=== PATIENT | female | born 1975 | race Caucasian/White ===

== ENCOUNTER → 2022-01-04 17:35 | Outpatient (CLI) | payer OTHER, MEDICAID, SELFPAY ==
--- NOTE | 2022-01-04 17:37 | DI.MG.S_ITS ---
BILATERAL DIGITAL SCREENING MAMMOGRAM 3D/2D WITH CAD: 01/04/2022 CLINICAL: Routine screening. Family history of breast cancer. Comparison is made to exam dated: 04/05/2015 mammogram - [facility]. The tissue of both breasts is heterogeneously dense. This may lower the sensitivity of mammography. Current study was also evaluated with a Computer Aided Detection (CAD) system. No significant masses, calcifications, or other findings are seen in either breast. There has been no significant interval change. IMPRESSION: NEGATIVE There is no mammographic evidence of malignancy. A 1 year screening mammogram is recommended. This exam was interpreted at Station ID: [id number]. NOTE: For mammograms, a report in lay terms will be sent to the patient. Approximately 15% of breast malignancies will not be visualized mammographically. In the management of a palpable breast mass, a negative mammogram must not discourage biopsy of a clinically suspicious lesion. Electronically Signed By: Elton Arango M.D., jr/tenzin:01/05/2022 08:28:44 letter sent: Normal Exam ACR BI-RADS Category 1: Negative 3341F
== END ==
PROVIDERS: Family Provider Family Medicine; PCP Internal Medicine; Referring Provider Internal Medicine; Visit Provider Internal Medicine
DX: Z12.31 Encounter for screening mammogram for malignant neoplasm of breast (principal); Z80.3 Family history of malignant neoplasm of breast
CPT/HCPCS: 77063; 77067

== ENCOUNTER → 2022-01-10 08:01 | Outpatient (CLI) | payer OTHER, MEDICAID, SELFPAY ==
[2022-01-10 09:48] LABS: Alanine Aminotransferase 15 IU/L (<35); Albumin 3.9 g/dL (3.5-5.0); Albumin Globulin Ratio 1.3 (1.0-2.8); Alkaline Phosphatase 42 U/L (38-126); Aspartate Aminotransferase 22 IU/L (14-36); BUN Creatinine Ratio 15.6 (6-22); Bilirubin Total 1.3 mg/dL (0.2-1.3); Blood Urea Nitrogen 10 mg/dL (7-17); Calcium 8.5 mg/dL (8.4-10.2); Carbon Dioxide 27 mmol/L (22-32); Chloride 108 mmol/L (98-107); Cholesterol 150 mg/dL (140-199); Estimated Glomerular Filt Rate > 60.0 mL/min (>60); Globulin 2.9 g/dL (1.7-4.1); Glucose 94 mg/dL (70-100); HDL Cholesterol 62 mg/dL (40-60); HEMOLYSIS < 15 (0-50); LDL Cholesterol Calculated 68 mg/dL (<100); Potassium 4.4 mmol/L (3.4-5.1); Sodium 138 mmol/L (137-145); Total Protein 6.8 g/dL (6.3-8.2); Triglycerides 98 mg/dL (35-150)
[2022-01-10 10:19] LABS: TSH w/ Reflex to FT4 2.21 uIU/mL (0.47-4.68)
[2022-01-11 06:36] LABS: Rubeola Measles IgG > 300.0 AU/mL (Immune >16.4); Varicella IgG Antibody 1506 index (Immune >165)
[2022-01-11 09:08] LABS: Mumps Virus IgG Antibody <9.0 AU/mL (Immune >10.9)
== END ==
PROVIDERS: Family Provider Family Medicine; PCP Internal Medicine; Referring Provider Internal Medicine; Visit Provider Internal Medicine
DX: Z13.1 Encounter for screening for diabetes mellitus (principal); Z13.220 Encounter for screening for lipoid disorders; Z13.6 Encounter for screening for cardiovascular disorders
CPT/HCPCS: 36415; 80053; 80061; 84443; 86735; 86762; 86765; 86787

== ENCOUNTER → 2023-01-25 15:26 | Outpatient (CLI) | payer OTHER, MEDICAID, SELFPAY ==
--- NOTE | 2023-01-25 | DI.MG.S_ITS ---
BILATERAL DIGITAL SCREENING MAMMOGRAM 3D/2D WITH CAD: 01/25/2023 CLINICAL: Routine screening. Family history of breast cancer. Comparison is made to exams dated: 01/04/2022 mammogram and 04/05/2015 mammogram - [facility]. Both breasts are heterogeneously dense, which may obscure small masses (category c / 51-75% glandular tissue). Current study was also evaluated with a Computer Aided Detection (CAD) system. No significant masses, calcifications, or other findings are seen in either breast. There has been no significant interval change. IMPRESSION: NEGATIVE There is no mammographic evidence of malignancy. A 1 year screening mammogram is recommended. Based on the Tyrer Cuzick model (a risk assessment model) the patient's lifetime risk is 12.1% and her 10 year risk is 2.6%. According to the ACR, ACS, and NCCN guidelines, an annual breast MRI exam along with mammogram is recommended if the patient's lifetime risk is 20% or greater. This exam was interpreted at Station ID: [id number]. NOTE: For mammograms, a report in lay terms will be sent to the patient. Approximately 15% of breast malignancies will not be visualized mammographically. In the management of a palpable breast mass, a negative mammogram must not discourage biopsy of a clinically suspicious lesion. Electronically Signed By: Liliam valenzuela/tenzin:01/26/2023 08:03:26 letter sent: Normal Exam ACR BI-RADS Category 1: Negative 3341F
== END ==
PROVIDERS: Family Provider Family Medicine; PCP Internal Medicine; Referring Provider Internal Medicine; Visit Provider Internal Medicine
DX: Z12.31 Encounter for screening mammogram for malignant neoplasm of breast (principal); Z80.3 Family history of malignant neoplasm of breast
CPT/HCPCS: 77063; 77067

== ENCOUNTER 2023-05-22 13:03 | Day surgery (SDC) | payer BC, SELFPAY ==
[2023-05-22 13:30] VITALS: BP 125/85; PULSE 81; RESP 16; TEMP 36.3; O2SAT 99; BMI 24.0
[2023-05-22] MEDS: LACTATED RINGERS 1,000 ML 200 ML IV (13:46)
--- NOTE | 2023-05-22 14:20 | P.HP_ITS ---
History of Present Illness History of Present Illness Date Patient Seen: 05/22/23 Time Patient Seen: 14:20 Chief complaint: SDC Narrative: The patient presents for colorectal screening. They have never had any previous examination for such. No personal or family history of colon cancer. On further history denies any recent gastrointestinal symptoms. No nausea, vomiting, abdominal pain, loss of appetite, unexplained weight loss, change in bowel habits, or blood per rectum. [facility] Medical History (Updated 02/03/22 @ 15:48 by Rosendo Ramos MD) Irregular menses Non-alcoholic fatty liver disease SVT (supraventricular tachycardia) Urinary incontinence Surgical History Status post delivery (02/16/02) Status post delivery (03/21/05) Family History Father Age: 79 Prostate cancer Grandmother Hypertension Mother Age: 82 Hypertension Heart problem Social History household members: spouse Smoking Status: Never smoker alcohol intake: current Meds Home Medications and Allergies Home Medications Medication Instructions Recorded Confirmed Type lorazepam 0.5 mg tablet 0.5 mg PO TID PRN anxiety #10 tabs 02/19/23 05/22/23 Rx sodium,potassium,mag sulfates 17.5 See Rx Instructions PO .COMPLEX 04/19/23 05/22/23 Rx gram-3.13 gram-1.6 gram oral soln #354 mL (Suprep Bowel Prep Kit) Allergies Allergy/AdvReac Type Severity Reaction Status Date / Time No Known Drug Allergies Allergy Verified 02/19/23 15:31 Exam Vital Signs (past 8 hours): - 05/22/23 13:30 Temperature 97.3 F L Pulse Rate 81 Respiratory Rate 16 Blood Pressure 125/85 Pulse Oximetry 99 Oxygen Delivery Method Room Air Oxygen Delivery Method Room Air Narrative Exam Narrative: Gen-Adult woman alert and oriented Abdomen-soft non tender Assessment & Plan Assessment & Plan narrative: The patient requires colorectal screening and colonoscopy is recommended. Technical details were discussed. Risks, benefits, alternatives explained. Risks including but not limited to myocardial infarction, aspiration, bleeding, pain, missed lesion, incomplete examination, need for further radiographic studies, colonic perforation, and need for major abdominal surgery were discussed. All questions were answered to their satisfaction, and they are in agreement with this plan.
--- NOTE | 2023-05-22 14:53 | PM.OP.COLON ---
Operative Date/Time/Diagnoses Date of procedure: 05/22/23 Time of procedure: 14:53 Pre-op diagnosis: Colorectal screening Post-op diagnosis: same Procedure & Clinicians Study performed: Screening colonoscopy Same procedure as scheduled: Yes Indications: screening Surgeon: Paresh Herndon Procedure Notes Procedure in detail: The history and physical was performed/updated and the patient is ASA class is 2. The procedure was discussed in detail with the patient. Potential risks complications including infection, bleeding, missed diagnosis, perforation, need for surgery, and were explained. Their questions were answered and informed consent was obtained. Patient was brought to the procedure room and placed standard monitoring equipment. The patient's vital signs were monitored continuously throughout the entire procedure. Prior to starting time-out was performed. The patient was placed in the left lateral recumbent position. Procedural sedation was administered by anesthesia. Examination began with a thorough inspection of the perianal area there was no evidence of fissures, fistulae, external hemorrhoids or cutaneous malignancy. The colonoscopy scope was then placed into the anal canal and was advanced to the cecum, which was identified by the ileocecal valve, the appendiceal orifice and the confluence of the taenia. The scope was then slowly withdrawn examining colon thoroughly in all directions, irrigating it of any residual stool. Normal healthy colon. No masses, inflammation or polyps The patient tolerated the procedure well. They will be discharged once criteria are met. The prep was of good/excellent quality. The withdrawl time was 7 minutes. Specimen(s): none sent Impression: Normal colonoscopy Post-procedure Recommendations: Colonoscopy in 10 years Disposition: same day surgery
[2023-05-22 14:57] VITALS: BP 111/70; PULSE 82; RESP 21; TEMP 37.1; O2SAT 97
[2023-05-22 14:59] VITALS: BP 106/69; PULSE 74; RESP 19; O2SAT 97
[2023-05-22 15:05] VITALS: BP 113/80; PULSE 68; RESP 20; O2SAT 98
[2023-05-22 15:10] VITALS: BP 135/80; PULSE 74; RESP 12; O2SAT 97
== END 2023-05-22 15:24 | disposition home or self-care (01) ==
PROVIDERS: Family Provider Family Medicine; PCP Internal Medicine; Referring Provider Surgery; Visit Provider Surgery
PROC: 0DJD8ZZ Inspection of Lower Intestinal Tract, Via Natural or Artificial Opening Endoscopic (ICD-10-PCS; CPT 45378; principal; 2023-05-22 14:15)
DX: Z12.11 Encounter for screening for malignant neoplasm of colon (principal)
CPT/HCPCS: 45378

== ENCOUNTER → 2024-02-01 08:17 | Outpatient (CLI) | payer BC, SELFPAY ==
--- NOTE | 2024-02-01 08:19 | DI.MG.S_ITS ---
BILATERAL DIGITAL SCREENING MAMMOGRAM 3D/2D WITH CAD: 02/01/2024 CLINICAL: Routine screening. Family history of breast cancer. Comparison is made to exams dated: 01/25/2023 mammogram and 01/04/2022 mammogram - [facility]. Both breasts are heterogeneously dense, which may obscure small masses (category c / 51-75% glandular tissue). Current study was also evaluated with a Computer Aided Detection (CAD) system. There is an asymmetry in the left breast anterior depth medial region seen on the craniocaudal view only. This is more prominent. No other significant masses, calcifications, or other findings are seen in either breast. IMPRESSION: INCOMPLETE: NEEDS ADDITIONAL IMAGING EVALUATION The asymmetry in the left breast is indeterminate. Additional views with possible ultrasound are recommended. Based on the Tyrer Cuzick model (a risk assessment model) the patient's lifetime risk is 12.2% and her 10 year risk is 2.7%. According to the ACR, ACS, and NCCN guidelines, an annual breast MRI exam along with mammogram is recommended if the patient's lifetime risk is 20% or greater. This exam was interpreted at Station ID: [id number]. NOTE: For mammograms, a report in lay terms will be sent to the patient. Approximately 15% of breast malignancies will not be visualized mammographically. In the management of a palpable breast mass, a negative mammogram must not discourage biopsy of a clinically suspicious lesion. Electronically Signed By: Ronny farmer/tenzin:02/01/2024 09:09:28 letter sent: Additional Imaging Needed ACR BI-RADS Category 0: Incomplete 3340F
== END ==
PROVIDERS: Family Provider Family Medicine; PCP Internal Medicine; Referring Provider Internal Medicine; Visit Provider Internal Medicine
DX: Z12.31 Encounter for screening mammogram for malignant neoplasm of breast (principal); Z80.3 Family history of malignant neoplasm of breast; N64.89 Other specified disorders of breast
CPT/HCPCS: 77063; 77067

== ENCOUNTER → 2024-02-27 13:27 | Outpatient (CLI) | payer BC, SELFPAY ==
--- NOTE | 2024-02-27 13:29 | DI.MG.S_ITS ---
UNILATERAL LEFT DIGITAL DIAGNOSTIC MAMMOGRAM 3D/2D WITH ADDITIONAL VIEWS: 02/27/2024 CLINICAL: Additional evaluation requested from prior study. Comparison is made to exams dated: 02/01/2024 mammogram, 01/25/2023 mammogram, and 01/04/2022 mammogram - [facility]. The left breast is heterogeneously dense, which may obscure small masses (category c / 51-75% glandular tissue). The asymmetry in the left breast anterior depth medial region seen on the craniocaudal view only is not seen in additional views. No other significant masses or calcifications are seen in the breast. IMPRESSION: BENIGN The asymmetry in the left breast seen on the screening mammogram likely respresents superimposed fibroglandular tissue and is benign. There is no mammographic evidence of malignancy. Return to annual mammogram screening schedule is recommended. Based on the Tyrer Cuzick model (a risk assessment model) the patient's lifetime risk is 12.2% and her 10 year risk is 2.7%. According to the ACR, ACS, and NCCN guidelines, an annual breast MRI exam along with mammogram is recommended if the patient's lifetime risk is 20% or greater. This exam was interpreted at Station ID: [id number]. NOTE: For mammograms, a report in lay terms will be sent to the patient. Approximately 15% of breast malignancies will not be visualized mammographically. In the management of a palpable breast mass, a negative mammogram must not discourage biopsy of a clinically suspicious lesion. Electronically Signed By: Liliam valenzuela/:02/27/2024 13:59:00 Entry: - 02/28/2024 15:43:59 letter sent: Normal Exam ACR BI-RADS Category 2: Benign Finding(s) 3342F
== END ==
PROVIDERS: PCP Internal Medicine; Referring Provider Internal Medicine; Visit Provider Internal Medicine
DX: R92.8 Other abnormal and inconclusive findings on diagnostic imaging of breast (principal); R92.332 Mammographic heterogeneous density, left breast
CPT/HCPCS: 77065; G0279

== ENCOUNTER → 2024-05-02 15:49 | Outpatient (CLI) | payer BC, SELFPAY ==
--- NOTE | 2024-05-02 15:50 | DI.RAD.S_ITS ---
PROCEDURE: XR HIP W PEL IF DONE RT 2V INDICATIONS: Right hip pain TECHNIQUE: AP pelvis with lateral view(s) of the right hip(s). COMPARISON: None. FINDINGS: Bones: No fractures or dislocations. Pelvic ring appears intact. No suspicious bony lesions. There is, however what appears to be moderately severe to severe degenerative changes at the right aspect of the low lumbosacral spine partially included on this examination including at L3-L4, L4-L5, with a possible pars interarticularis defect on the right at the L5 vertebral segment. Soft tissues: The visualized bowel gas pattern is normal. No suspicious soft tissue calcifications. IMPRESSION: No trauma or other acute abnormality at the right hip but referred pain from the prominent degenerative changes and possible pars interarticularis defect on the right at the low lumbosacral spine discussed above should be considered. Dictated by: Porfirio Velasco M.D. on 05/02/2024 at 16:11 Approved by: Porfirio Velasco M.D. on 05/02/2024 at 16:12
== END ==
PROVIDERS: PCP Internal Medicine; Referring Provider Registered Nurse; Visit Provider Registered Nurse
DX: M47.817 Spondylosis without myelopathy or radiculopathy, lumbosacral region (principal); M47.816 Spondylosis without myelopathy or radiculopathy, lumbar region; M25.551 Pain in right hip
CPT/HCPCS: 73502

== ENCOUNTER → 2024-05-06 11:32 | Outpatient (CLI) | payer OTHER, SELFPAY ==
--- NOTE | 2024-05-06 11:34 | DI.RAD.S_ITS ---
PROCEDURE: XR LUMBAR SPINE 2-3V INDICATIONS: right leg pain TECHNIQUE: 3 views of the lumbar spine were acquired. COMPARISON: None. FINDINGS: Bones: Mild overall lumbar spondylotic changes with disc space height loss, facet arthropathy, and early osteophyte formation. No acute vertebral body height loss or traumatic subluxation. There is trace leftward spinal curvature at L3-L4. Soft tissues: Indeterminate hyperdensity is seen projecting over the left lower quadrant. IMPRESSION: Mild spondylotic changes. Mild leftward spinal curvature. If there is high concern for further derangement, consider MRI evaluation. Indeterminate hyperdensity is seen projecting over the left lower quadrant. Dictated by: Ronny Frias M.D. on 05/06/2024 at 15:45 Approved by: Ronny Frias M.D. on 05/06/2024 at 15:46
== END ==
PROVIDERS: PCP Internal Medicine; Referring Provider Internal Medicine; Visit Provider Internal Medicine
DX: M47.816 Spondylosis without myelopathy or radiculopathy, lumbar region (principal); M79.604 Pain in right leg
CPT/HCPCS: 72100

== ENCOUNTER → 2024-05-08 09:30 | Outpatient (CLI) | payer OTHER, SELFPAY ==
--- NOTE | 2024-05-08 09:32 | DI.RAD.S_ITS ---
PROCEDURE: XR ABDOMEN MIN 2V INDICATIONS: llq hyperdensity TECHNIQUE: 2 views of the abdomen were acquired. COMPARISON: None. FINDINGS: Surgical changes and devices: None. Bowel: No pneumoperitoneum. The bowel gas pattern is normal. Soft tissues: No masses; visualized solid organ contours appear normal in size. No suspicious abdominal calcifications. Bones: Mild levoscoliosis in the lumbar spine.. IMPRESSION: Nonobstructive bowel gas pattern. Dictated by: Paulino Good M.D. on 05/08/2024 at 12:04 Approved by: Paulino Good M.D. on 05/08/2024 at 12:06
== END ==
PROVIDERS: PCP Internal Medicine; Referring Provider Internal Medicine; Visit Provider Internal Medicine
DX: R19.04 Left lower quadrant abdominal swelling, mass and lump (principal)
CPT/HCPCS: 74019

== ENCOUNTER 2024-08-08 08:02 | Day surgery (SDC) | payer OTHER, SELFPAY ==
[2024-08-05 08:34] VITALS: BMI 24.3
--- NOTE | 2024-08-08 | PATH_ITS ---
[facility] Accession Number: [id number] No. of containers..01 Tissue . 01 Material submitted: . endometrium - ENDOMETRIAL CURETTINGS . 01 Diagnosis: ENDOMETRIAL CURETTINGS: Small fragments of endometrial tissue and scant, detached strips of endometrial glandular epithelium with scattered foreign body material; negative for significant atypia. Detached, superficial fragments of squamous epithelium with reactive features. Negative for endometrioid intraepithelial neoplasia or malignancy. Please see comment. MRV 08/12/2024 1442 Local . 01 Comment: Due to the scant nature of this biopsy, it may not be entirely teleservices representative of this patient's endometrium; additional sampling could be considered, if clinically appropriate. . 01 Electronically signed: . Racheal Vasques MD, Pathologist NPI- [id number] . 01 Gross description: . Received in formalin labeled with two patient identifiers and designated EMC, and consists of a 0.2 x 0.1 x 0.1 cm scant amount of collier-brown tissue which is filtered and entirely submitted in cassette A1. ([id number]) /BRISSA 08/10/2024 1807 Local . 01 Pathologist provided ICD-10: N92.1 . 01 CPT . 024529 Specimen Comment: A courtesy copy of this report has been sent to [phone] Performed at: [address] [facility] [address], [place], [place] [id number] MD Julian Soto MD Phone: [phone]
[2024-08-08 08:22] VITALS: BMI 23.6
[2024-08-08 08:35] VITALS: BP 139/78; PULSE 54; RESP 17; TEMP 36.9; O2SAT 99
[2024-08-08] MEDS: ACETAMINOPHEN 325 MG TABLET 975 MG PO (08:43)
[2024-08-08] MEDS: SCOPOLAMINE 1 PATCH TOP (08:44)
[2024-08-08] MEDS: LACTATED RINGERS 1,000 ML 42 ML IV (08:46)
--- NOTE | 2024-08-08 10:04 | PM.GYNHP.1 ---
History of Present Illness History of Present Illness Reason for admission: vaginal bleeding (Heavy with menstrual cycle) Narrative: Rona Mcclellan is a 48 year old female G 2 P2 who presents for a D&C hysteroscopy with Novasure endometrial ablation due to menorrhagia. Cannot tolerate OCP's [facility] Medical History (Updated 06/02/24 @ 13:21 by Jodi Blevins MD) Chicken pox (~1983) Painful menstrual periods (~2020) Irregular menses (~2021) Urinary incontinence Non-alcoholic fatty liver disease SVT (supraventricular tachycardia) (~2013) Surgical History (Updated 08/05/24 @ 08:38 by Demetrice Joseph RN) History of colonoscopy (~05/2023) Status post delivery (03/21/05) Status post delivery (02/16/02) Family History Father Prostate cancer Cancer Grandmother Hypertension Mother Age: 85 Hypertension Heart problem Hyperthyroidism Atrial fibrillation Hyperlipidemia Sister No problems noted. Grandfather Cancer Grandmother Cancer Social History marital status: number of children: 2 household members: spouse sexual history: Sexually active with one partner (), no concern for STIs Smoking Status: Never smoker alcohol intake: current Meds Home Medications and Allergies Home Medications Medication Instructions Recorded Confirmed Type lorazepam 0.5 mg tablet 0.5 mg PO TID PRN anxiety #10 tabs 10/11/23 08/08/24 Rx methocarbamol 500 mg tablet 500 mg PO TID PRN muscle pain #30 05/12/24 08/08/24 Rx tabs oxycodone-acetaminophen 5 mg-325 1 tab PO Q6H PRN pain #15 tabs 05/12/24 08/08/24 Rx mg tablet (Percocet) Allergies Allergy/AdvReac Type Severity Reaction Status Date / Time No Known Drug Allergies Allergy Verified 08/08/24 08:19 Exam Vital Signs (past 8 hours): - 08/08/24 08:35 Temperature 98.5 F Pulse Rate 54 L Respiratory Rate 17 Blood Pressure 139/78 Pulse Oximetry 99 Oxygen Delivery Method Room Air Oxygen Delivery Method Room Air Narrative Exam Narrative: Gen: NAD Lungs: CTA bilat CV: RRR Abd: soft, nontender Bimanual exam: 7 wk size anteverted uterus Assessment & Plan Assessment & Plan narrative: Assessment: 48 year old with menorrhagia Plan: D&C hysteroscopy with Novasure endometrial ablation The risks, benefits and alternatives to the procedure were explained to the patient. The risks including bleeding, infection, and uterine perforation. She understands these risks and agrees to proceed. A full PAR-Q was held and consent form was signed. Time-Based Coding :: [TOTAL MINUTES] spent with patient and on the chart (including review of chart, obtaining history, exam, reviewing outside data, placing orders, documenting exam and treatment plan, and counseling patient) on [DATE].
--- NOTE | 2024-08-08 10:10 | PM.PREOP ---
Pre-operative Note Interval Note History & Physical reviewed/Exam performed by Physician: Yes Changes to H&P: No H&P completed within 30 days and has changed as indicated here:: 08/08/24
--- NOTE | 2024-08-08 10:31 | SUR.OPER ---
Lithotomy on padded OR bed, head on pillow, arms secured on padded arm boards at <90 degrees abduction. Legs secured in padded yellow fins stirrups.
[2024-08-08 10:43] VITALS: BP 106/68; PULSE 75; RESP 14; TEMP 36.4; O2SAT 97
[2024-08-08 10:48] VITALS: BP 136/71; PULSE 63; RESP 12; O2SAT 97
[2024-08-08 10:52] VITALS: BP 135/68; PULSE 65; RESP 10; O2SAT 97
--- NOTE | 2024-08-08 10:59 | PM.GYNOP.1 ---
Operative Date/Time/Diagnoses Date of procedure: 08/08/24 Time of procedure: 11:00 Pre-op diagnosis: Menorrhagia Post-op diagnosis: same Procedure & Clinicians Procedure: Procedures Operation Date: 08/08/24 09:45 Actual Procedure Side Surgeon sebastian D&C Hysteroscopy w/ Novasure Ablation Jodi Blevins MD Indications: 48-year-old with menorrhagia Unable to tolerate oral contraceptives Surgeon: Jodi Blevins Anesthesia Type: General (LMA) Operative Notes Findings: 6 week size anteverted uterus Both fallopian tube ostia observed No polyps or fibroids Closure Type: not applicable Specimen(s): endometrial curettings Estimated blood loss (mL): 5 Blood products transfused: none Procedure in detail: After informed consent was obtained, the patient was taken to the operating room where she was placed in the dorsal supine position. After adequate LMA general anesthesia was achieved, she was placed in the dorsal lithotomy position, and prepped and draped in the usual sterile fashion. A time-out was performed. A bivalve speculum was placed into the vagina and the anterior lip of the cervix was grasped with a single-tooth tenaculum. The cervical os was sequentially dilated to the # 8 Hegar dilator. The hysteroscope pass easily into the endometrial cavity. Both fallopian tube ostia were observed. There were no polyps or fibroids observed. The hysteroscope was removed. Sharp curettage was performed yielding minimal amount of endometrial curettings. The uterus was measured from the internal os to the fundus and measured 4 cm. The NovaSure catheter was placed into the endometrial cavity and opened. The width of the uterus was 2.5 cm. Both of these were set on the NovaSure generator. This indicated a power of [address] The cervix was CT, the cavity assessment was performed and passed. The cycle was initiated and lasted 50 seconds. At the completion of the cycle the cervix was uncapped, the NovaSure catheter was closed and removed from the uterus without difficulty. The single-tooth tenaculum was removed from the anterior lip of the cervix. The bivalve speculum was removed from the vagina. Sponge, lap, and instrument counts were correct x2. The patient tolerated the procedure well, and was taken to PACU in stable condition. Complications: none Post-operative Condition: stable Disposition: PACU Plan for aftercare: Home after recovery
[2024-08-08 11:02] VITALS: BP 141/82; PULSE 62; RESP 12; TEMP 36.2; O2SAT 100
[2024-08-08 11:35] VITALS: BP 137/78; PULSE 48; RESP 14; TEMP 36.6; O2SAT 97
== END 2024-08-08 11:50 | disposition home or self-care (01) ==
PROVIDERS: PCP Internal Medicine; Referring Provider Obstetrics & Gynecology; Visit Provider Obstetrics & Gynecology
PROC: 0U5B8ZZ Destruction of Endometrium, Via Natural or Artificial Opening Endoscopic (ICD-10-PCS; CPT 58563; principal; 2024-08-08 09:45)
DX: N92.1 Excessive and frequent menstruation with irregular cycle (principal)
CPT/HCPCS: 58563; J1100; J1885; J2250; J2405; J2704; J3010

== ENCOUNTER → 2025-02-10 16:15 | Outpatient (CLI) | payer OTHER, SELFPAY ==
--- NOTE | 2025-02-10 16:16 | DI.MG.S_ITS ---
MM screening mammo BI: 02/10/2025. BI-RADS: 1 CLINICAL: 49-year old female for bilateral screening mammogram. Tyrer-Cuzick lifetime risk of 12.3%. No personal or first-degree family history of breast cancer. Current reported family history of breast cancer: paternal aunt. PRIOR EXAMS 02/27/2024, 02/01/2024, 01/25/2023, 01/04/2022, 04/05/2015. MAMMOGRAPHY TECHNIQUE: 2D and 3D (tomosynthesis) digital mammographic views obtained, with additional images as needed for full coverage. Current study was also evaluated with a Computer Aided Detection (CAD) system. DENSITY C. The breasts are heterogeneously dense, which may obscure small masses. MAMMOGRAPHY FINDINGS Bilateral: No suspicious mass, asymmetry, microcalcification, or other abnormality seen. No significant change from comparison. IMPRESSION: * No evidence of malignancy. RECOMMENDATIONS Bilateral * Annual screening mammography. OVERALL ASSESSMENT CATEGORY BI-RADS-1: Negative. The [employer] recommends annual screening mammography beginning at age 40 for women with average risk of breast cancer. ELECTRONICALLY SIGNED: Neela Barrientos M.D. on 02/11/2025 at 01:54:35 PM PT Interpreting Station ID: [id number]
== END ==
PROVIDERS: PCP Internal Medicine; Referring Provider Internal Medicine; Visit Provider Internal Medicine
DX: Z12.31 Encounter for screening mammogram for malignant neoplasm of breast (principal); Z80.3 Family history of malignant neoplasm of breast; R92.333 Mammographic heterogeneous density, bilateral breasts
CPT/HCPCS: 77063; 77067